=== PATIENT | female | born 1945 | race Caucasian/White ===

== ENCOUNTER → 2016-09-02 | Outpatient (CLI) | payer OTHER | END | disposition home or self-care (01) | LOC: C.PAPS 15:14 | PROVIDERS: ATTEND Family Medicine | DX: Z12.4 Encounter for screening for malignant neoplasm of cervix (principal) ==

== ENCOUNTER → 2017-04-28 | Outpatient (CLI) | payer OTHER ==
[2017-04-28 12:53] LABS: BASO % 0.2 %; BASO ABS # 0.01 K/uL (0-0.2); EOS % 1.2 %; EOS ABS # 0.07 K/uL (0-0.5); HEMATOCRIT 45.9 % (37-47); HEMOGLOBIN 15.6 g/dL (12.0-16.0); IG# 0.01 K/uL (0.00-0.02); LYMPH ABS # 2.31 K/uL (1.2-3.4); MEAN CELL VOLUME 90.9 fL (80-100); MEAN CORPUSCULAR HEMOGLOBIN 30.9 pg (25-34); MEAN PLATELET VOLUME 10.8 fL (7.4-10.4); MONO % 7.5 %; MONO ABS # 0.42 K/uL (0.11-0.59); NEUT % 49.9 %; NEUT ABS # 2.81 K/uL (1.4-6.5); PLATELET COUNT 223 K/uL (130-400); RED CELL DISTRIBUTION WIDTH CV 14.5 % (11.5-14.5); RED CELL DISTRIBUTION WIDTH SD 48.5 fL (36.4-46.3); WHITE BLOOD COUNT 5.63 K/uL (4.8-10.8)
[2017-04-28 13:14] LABS: ALBUMIN 3.8 gm/dl (3.4-5.0); ALT/SGPT 45 U/L (12-78); BLOOD UREA NITROGEN 27 mg/dl (7-18); CALCIUM 9.4 mg/dl (8.5-10.1); CARBON DIOXIDE 26 mmol/L (21-32); CHOLESTEROL 162 mg/dl (0-200); CREATININE 0.95 mg/dl (0.60-1.20); GLUCOSE 106 mg/dl (70-99); POTASSIUM 4.1 mmol/L (3.5-5.1); SODIUM 138 mmol/L (136-145)
[2017-04-28 13:17] LABS: ALKALINE PHOSPHATASE 66 U/L (45-117); AST/SGOT 32 U/L (15-37); LDL CHOLESTEROL CALCULATED 62 mg/dl; TOTAL PROTEIN 7.4 gm/dl (6.4-8.2)
== END | disposition home or self-care (01) ==
LOC: C.LABMFLN 08:56
PROVIDERS: ATTEND Family Medicine
DX: I10 Essential (primary) hypertension (principal); E78.5 Hyperlipidemia, unspecified